=== PATIENT | male | born 1960 | race Caucasian/White ===

== ENCOUNTER → 2016-08-04 | Outpatient (CLI) | payer BC ==
[~2016-08-04] MED LIST: LXT; ZFRODT4 SL
== END | disposition home or self-care (01) ==
LOC: C.LABSPEC 12:14
PROVIDERS: ATTEND Internal Medicine
DX: Z12.11 Encounter for screening for malignant neoplasm of colon (principal)

== ENCOUNTER 2018-01-06 08:19 | Emergency (ER) | payer OTHER ==
[~2018-01-06] VITALS: Ht 167.6 cm; Wt 69.0 kg
[~2018-01-06 08:19] MED LIST changes: +CEPH500C PO; +LISI-729 PO; -LXT; -ZFRODT4 SL
[2018-01-06 08:28] VITALS: BP 117/73; PULSE 59; TEMP 36.7; O2SAT 97; Ht 167.6 cm; Wt 69.0 kg
--- NOTE | 2018-01-06 08:57 | EMERGENCY ROOM VISIT NOTE ---
ED Visit Note First contact with patient: 08:27 CHIEF COMPLAINT: Suture removal This patient returns to the ED today for removal of sutures that were placed 15 days ago. There has been no swelling, redness, or drainage from the wound. The patient feels like the laceration is healing well. REVIEW OF SYSTEMS: Head: No headache, injury or neck pain. Skin: No rash, new lesions, or masses. General: No fever or chills, fatigue, loss of appetite , or significant recent weight gain or loss. PMH: Reviewed and unchanged from prior visit. SOCIAL HISTORY: Patient lives at home. PHYSICAL EXAM: Vital Signs: Reviewed Nurse's notes. There is a sutured wound on the palm of the right hand with no signs of infection. There is no erythema , swelling, or tenderness. EMERGENCY DEPARTMENT COURSE: The sutures were removed without any difficulty and there was no separation of the wound edges. The wound edges were reinforced with benzoin and Steri-Strips. Current/Historical Medications Scheduled Lisinopril (Zestril), 5 MG PO DAILY Allergies Coded Allergies: No Known Allergies (Unverified , 01/06/18) Vital Signs Date Time Temp Pulse Resp B/P (MAP) Pulse Ox O2 Delivery O2 Flow Rate FiO2 01/06/18 08:28 36.7 59 18 117/73 97 Room Air Departure Information Impression Primary Impression: Encounter for removal of sutures Referrals Keaton Grant M.D. (PCP) Patient Instructions [facility]
== END 2018-01-06 08:50 | disposition home or self-care (01) ==
LOC: C.EDB 08:20
DX: S61.401D Unspecified open wound of right hand, subsequent encounter (principal); X58.XXXD Exposure to other specified factors, subsequent encounter